=== PATIENT | male | born 1970 | race Asian ===

== ENCOUNTER 2017-05-27 13:15 | Emergency (ER) | payer OTHER ==
[~2017-05-27] VITALS: Ht 154.9 cm; Wt 70.8 kg
== END 2017-05-27 15:00 | disposition home or self-care (01) ==
LOC: ED 13:15
DX: S60.012A Contusion of left thumb without damage to nail, initial encounter (principal); W22.8XXA Striking against or struck by other objects, initial encounter; Y93.89 Activity, other specified; Y92.89 Other specified places as the place of occurrence of the external cause; Y99.8 Other external cause status
CPT/HCPCS: 99283

== ENCOUNTER 2017-07-22 12:27 | Emergency (ER) | payer OTHER ==
[~2017-07-22] VITALS: Ht 177.8 cm; Wt 72.6 kg
== END 2017-07-22 13:10 | disposition home health service (06) ==
LOC: ED 12:27
DX: K04.7 Periapical abscess without sinus (principal)
CPT/HCPCS: 99281